=== PATIENT | male | born 1955 ===

== ENCOUNTER 2019-09-05 07:30 | Inpatient (IN) | payer OTHER ==
[~2019-09-05] VITALS: Ht 188 cm; Wt 69.9 kg
[2019-09-05] MEDS ORDERED: XYZAL5 MG PO (09:47)
[2019-09-05] MEDS ORDERED: WELLBUTRIN XL300 MG PO (09:48)
[2019-09-05] MEDS ORDERED: [UNRECOGNIZED DRUG - OTHER] PO (09:48)
[2019-09-05] MEDS ORDERED: FOLIC PO (09:49)
[2019-09-05] MEDS ORDERED: TRASADONE PO (09:49)
[2019-09-05] MEDS ORDERED: [UNRECOGNIZED DRUG - OTHER] PO (09:50)
[2019-09-05] MEDS ORDERED: TAMS0.4C PO (09:50)
[2019-09-05] MEDS ORDERED: TOPROL XL25 M1 PO (09:50)
[2019-09-05] MEDS ORDERED: [UNRECOGNIZED DRUG - OTHER] PO (09:51)
[2019-09-05] MEDS ORDERED: LIPIT PO (09:51)
[2019-09-05] MEDS ORDERED: PROTONIX40 MG PO (09:51)
[2019-09-05] MEDS ORDERED: LEVOTHYROXINE25 MCG PO (09:52)
[2019-09-11] MEDS ORDERED: LIPITOR20 MG (08:48)
[2019-09-11] MEDS ORDERED: CLORAZEPATE D3.75 MG PO (08:49)
[2019-09-11] MEDS ORDERED: TRAZODONE HCL50 MG PO (08:49)
[2019-09-11] MEDS ORDERED: FOLIC ACID1 MG PO (08:54)
[2019-09-11] MEDS ORDERED: COLCRYS0.6 MG PO (08:57)
[2019-09-11] MEDS ORDERED: METHOTREXATE2.5 MG PO (09:00)
[2019-09-15] MEDS ORDERED: PERCOCET 5-3251 EACH PO (09:17)
[2019-09-15] MEDS ORDERED: INTEGRA PLUS C1 EACH PO (09:17)
[2019-09-15] MEDS ORDERED: BACTRIM DS TAB1 EACH PO (09:17)
[2019-09-15] MEDS ORDERED: XARELTO15 MG PO (09:17)
== END 2019-09-15 12:53 | DRG 470 ==
LOC: SURH 09-11 06:05 → O/R 09-11 06:05 → SURH 09-11 07:30
PROVIDERS: ADMIT Orthopaedic Surgery Sports Medicine
PROC: 0SRC0J9 Replacement of Right Knee Joint with Synthetic Substitute, Cemented, Open Approach (ICD-10-PCS; principal; 2019-09-11 10:45)
PROC: 4A12X4Z Monitoring of Cardiac Electrical Activity, External Approach (ICD-10-PCS; 2019-09-13)
PROC: 3E033GC Introduction of Other Therapeutic Substance into Peripheral Vein, Percutaneous Approach (ICD-10-PCS; 2019-09-13)
PROC: 4A033R1 Measurement of Arterial Saturation, Peripheral, Percutaneous Approach (ICD-10-PCS; 2019-09-13)
PROC: 4A02XFZ Measurement of Cardiac Rhythm, External Approach (ICD-10-PCS; 2019-09-13)
PROC: BB24YZZ Computerized Tomography (CT Scan) of Bilateral Lungs using Other Contrast (ICD-10-PCS; 2019-09-13)
PROC: B54BZZZ Ultrasonography of Right Lower Extremity Veins (ICD-10-PCS; 2019-09-13)
DX: M17.11 Unilateral primary osteoarthritis, right knee (principal); I80.221 Phlebitis and thrombophlebitis of right popliteal vein; I10 Essential (primary) hypertension; E03.9 Hypothyroidism, unspecified; R00.0 Tachycardia, unspecified; F32.9 Major depressive disorder, single episode, unspecified